=== PATIENT | male | born 1950 | race American Indian/Alaskan Native ===

== ENCOUNTER 2017-04-07 06:53 | Emergency (ER) | payer OTHER ==
[2017-04-07 07:09] VITALS: BP 166/96
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
== END 2017-04-07 10:06 | disposition home or self-care (01) ==
LOC: ED 06:53
DX: R51 Headache (principal); M54.2 Cervicalgia; Z86.73 Personal history of transient ischemic attack (TIA), and cerebral infarction without residual deficits; I10 Essential (primary) hypertension; E11.9 Type 2 diabetes mellitus without complications; Z87.891 Personal history of nicotine dependence; V49.49XA Driver injured in collision with other motor vehicles in traffic accident, initial encounter; Y92.488 Other paved roadways as the place of occurrence of the external cause; Y93.89 Activity, other specified; Y99.9 Unspecified external cause status
CPT/HCPCS: 70450; 72125

== ENCOUNTER 2017-06-14 07:55 | Outpatient (CLI) | payer MEDICARE, OTHER | END 2017-06-14 07:56 | disposition home or self-care (01) | LOC: ECHO 07:55 | PROVIDERS: ATTEND Internal Medicine Hematology & Oncology | DX: Z01.818 Encounter for other preprocedural examination (principal); I08.3 Combined rheumatic disorders of mitral, aortic and tricuspid valves; H26.9 Unspecified cataract | CPT/HCPCS: 93005; 93010; 93306 ==

== ENCOUNTER 2017-12-11 06:44 | Emergency (ER) | payer MEDICARE, OTHER ==
[2017-12-11 07:11] VITALS: BP 123/73
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
[2017-12-11 09:20] LABS: Bilirubin,Urine NEG (Negative); Blood,Urine NEG (Negative); Color,Urine Yellow (Yellow); Mucus,Urine FEW /HPF; Protein,Urine <15 mg/dL mg/dL (Negative); Urobilinogen,Urine < 2.0 mg/dL (<2.0)
== END 2017-12-11 09:24 | disposition home or self-care (01) ==
LOC: ED 06:44
DX: S39.012A Strain of muscle, fascia and tendon of lower back, initial encounter (principal); I10 Essential (primary) hypertension; E11.9 Type 2 diabetes mellitus without complications; Z86.73 Personal history of transient ischemic attack (TIA), and cerebral infarction without residual deficits; Z87.891 Personal history of nicotine dependence; Z88.2 Allergy status to sulfonamides; X58.XXXA Exposure to other specified factors, initial encounter; Y93.89 Activity, other specified; Y99.8 Other external cause status; Y92.89 Other specified places as the place of occurrence of the external cause
CPT/HCPCS: 81001; 99283

== ENCOUNTER 2018-07-14 10:50 | Outpatient (CLI) | payer MEDICARE ==
--- NOTE | 2018-07-14 11:30 | XRay Report ---
ROUTINE CHEST, TWO VIEWS: HISTORY: Cough. The trachea, heart, mediastinal contour, lung ashley and bony thorax are unremarkable. No significant change since 02/22/16. IMPRESSION: Unremarkable chest x-ray.
--- NOTE | 2018-07-14 12:31 | XRay Report ---
LUMBOSACRAL SPINE, FIVE VIEWS: HISTORY: Lower back pain. Bone mineralization is normal. There is straightening of the normal lordosis. A chronic compression deformity of L3 is identified with approximately 25% loss of height. There are moderate degenerative changes at L2-3 and L3-4. The remaining disc levels are within normal limits. There is mild diffuse facet arthropathy. The oblique images demonstrate no evidence for high-grade neural foraminal narrowing or partial defect. IMPRESSION: Chronic L3 compression deformity. Straightening of the normal lumbar lordosis. Degenerative findings as outlined above.
== END 2018-07-14 10:51 | disposition home or self-care (01) ==
LOC: XRAY 10:50
PROVIDERS: ATTEND Internal Medicine Hematology & Oncology
DX: M47.816 Spondylosis without myelopathy or radiculopathy, lumbar region (principal); M40.46 Postural lordosis, lumbar region; R05 Cough
CPT/HCPCS: 71046; 72110

== ENCOUNTER 2018-12-16 19:01 | Emergency (ER) | payer MEDICARE, OTHER ==
[2018-12-16 19:23] VITALS: BP 150/81
--- NOTE | 2018-12-16 19:23 | Event Note ---
ED Screening Note Date of service: 12/16/18 Time: 19:22 ED Screening Note: 68 y/o male with tongue irritation for a couple of weeks. This initial assessment/diagnostic orders/clinical plan/treatment(s) is/are subject to change based on patients health status, clinical progression and re-assessment by fellow clinical providers in the ED. Further treatment and workup at subsequent clinical providers discretion. Patient/guardian urged not to elope from the ED as their condition may be serious if not clinically assessed and managed. Initial orders include:
--- NOTE | 2018-12-16 19:53 | Emergency Department Report ---
ED ENT HPI - General Chief complaint: Dental/Oral Stated complaint: TONGUE IRRITATION Time Seen by Provider: 12/16/18 19:19 Source: patient Mode of arrival: Ambulatory Limitations: No Limitations - History of Present Illness Initial comments: pt is a 68 yo male who presents to the ED with c/o tongue irritation that began two weeks ago. He states that it becomes more irritated after eating. He denies any sore throat, difficulty swallowing, or any other sx. He is a former smoker and quit in 2004. pt states he has a hx of HTN and states he ate a meal high in sodium last night. - Related Data Previous Rx's Medication Instructions Recorded Last Taken Type Amoxicillin [Trimox CAP] 500 mg PO Q8H #30 capsule 06/03/13 Unknown Rx Prednisone 20 mg PO QDAY #5 tablet 06/03/13 Unknown Rx Triamcinolone 0.5% [Kenalog 0.5% 1 applic TP TID #2 tube 06/26/14 Unknown Rx CREAM] HYDROcodone/APAP 7.5-325 [[place] 1 each PO Q6HR PRN #20 tablet 02/17/16 Unknown Rx 7.5/325] Hydralazine HCl [Apresoline TAB] 50 mg PO Q12H #60 tablet 02/17/16 Unknown Rx Lisinopril/Hydrochlorothiazide 1 tab PO QDAY #30 tab 02/17/16 Unknown Rx [Zestoretic 20-12.5 mg] Cephalexin [Keflex] 500 mg PO QID #30 capsule 02/22/16 Unknown Rx HYDROcodone/APAP 7.5-325 [[place] 1 each PO Q6HR PRN #20 tablet 02/22/16 Unknown Rx 7.5/325] traMADol [Ultram 50 MG tab] 50 mg PO Q4HR PRN #12 tablet 04/07/17 Unknown Rx Ibuprofen [Motrin] 600 mg PO Q8H PRN #20 tablet 12/11/17 Unknown Rx methOCARBAMOL [Robaxin TAB] 500 mg PO Q6H PRN #15 tablet 12/11/17 Unknown Rx traMADol [Ultram] 50 mg PO Q6HR PRN #10 tablet 12/11/17 Unknown Rx Famotidine [Pepcid] 20 mg PO DAILY #20 tablet 12/16/18 Unknown Rx Nystas/Diphen/Xyl Visc/Mylanta 10 ml MM BID #1 udc 12/16/18 Unknown Rx [Magic Mouthwash] Allergies Allergy/AdvReac Type Severity Reaction Status Date / Time Sulfa (Sulfonamide Allergy Rash Verified 06/26/14 07:39 Antibiotics) ED Dental HPI - General Chief complaint: Dental/Oral Stated complaint: TONGUE IRRITATION Time Seen by Provider: 12/16/18 19:19 Source: patient Mode of arrival: Ambulatory Limitations: No Limitations - Related Data Previous Rx's Medication Instructions Recorded Last Taken Type Amoxicillin [Trimox CAP] 500 mg PO Q8H #30 capsule 06/03/13 Unknown Rx Prednisone 20 mg PO QDAY #5 tablet 06/03/13 Unknown Rx Triamcinolone 0.5% [Kenalog 0.5% 1 applic TP TID #2 tube 06/26/14 Unknown Rx CREAM] HYDROcodone/APAP 7.5-325 [[place] 1 each PO Q6HR PRN #20 tablet 02/17/16 Unknown Rx 7.5/325] Hydralazine HCl [Apresoline TAB] 50 mg PO Q12H #60 tablet 02/17/16 Unknown Rx Lisinopril/Hydrochlorothiazide 1 tab PO QDAY #30 tab 02/17/16 Unknown Rx [Zestoretic 20-12.5 mg] Cephalexin [Keflex] 500 mg PO QID #30 capsule 02/22/16 Unknown Rx HYDROcodone/APAP 7.5-325 [[place] 1 each PO Q6HR PRN #20 tablet 02/22/16 Unknown Rx 7.5/325] traMADol [Ultram 50 MG tab] 50 mg PO Q4HR PRN #12 tablet 04/07/17 Unknown Rx Ibuprofen [Motrin] 600 mg PO Q8H PRN #20 tablet 12/11/17 Unknown Rx methOCARBAMOL [Robaxin TAB] 500 mg PO Q6H PRN #15 tablet 12/11/17 Unknown Rx traMADol [Ultram] 50 mg PO Q6HR PRN #10 tablet 12/11/17 Unknown Rx Famotidine [Pepcid] 20 mg PO DAILY #20 tablet 12/16/18 Unknown Rx Nystas/Diphen/Xyl Visc/Mylanta 10 ml MM BID #1 udc 12/16/18 Unknown Rx [Magic Mouthwash] Allergies Allergy/AdvReac Type Severity Reaction Status Date / Time Sulfa (Sulfonamide Allergy Rash Verified 06/26/14 07:39 Antibiotics) ED Review of Systems ROS: Stated complaint: TONGUE IRRITATION Other details as noted in HPI Comment: All other systems reviewed and negative ED Past Medical Hx - Past Medical History Previous Medical History?: Yes Hx Hypertension: Yes Hx CVA: Yes Hx Diabetes: Yes Additional medical history: aneurysm - Surgical History Past Surgical History?: Yes Additional Surgical History: brain surgery 2000-aneurysm - Social History Smoking Status: Former Smoker Substance Use Type: None - Medications Home Medications: Home Medications Medication Instructions Recorded Confirmed Last Taken Type Amoxicillin [Trimox CAP] 500 mg PO Q8H #30 capsule 06/03/13 Unknown Rx Prednisone 20 mg PO QDAY #5 tablet 06/03/13 Unknown Rx Triamcinolone 0.5% [Kenalog 0.5% 1 applic TP TID #2 tube 06/26/14 Unknown Rx CREAM] HYDROcodone/APAP 7.5-325 [[place] 1 each PO Q6HR PRN #20 tablet 02/17/16 Unknown Rx 7.5/325] Hydralazine HCl [Apresoline TAB] 50 mg PO Q12H #60 tablet 02/17/16 Unknown Rx Lisinopril/Hydrochlorothiazide 1 tab PO QDAY #30 tab 02/17/16 Unknown Rx [Zestoretic 20-12.5 mg] Cephalexin [Keflex] 500 mg PO QID #30 capsule 02/22/16 Unknown Rx HYDROcodone/APAP 7.5-325 [[place] 1 each PO Q6HR PRN #20 tablet 02/22/16 Unknown Rx 7.5/325] traMADol [Ultram 50 MG tab] 50 mg PO Q4HR PRN #12 tablet 04/07/17 Unknown Rx Ibuprofen [Motrin] 600 mg PO Q8H PRN #20 tablet 12/11/17 Unknown Rx methOCARBAMOL [Robaxin TAB] 500 mg PO Q6H PRN #15 tablet 12/11/17 Unknown Rx traMADol [Ultram] 50 mg PO Q6HR PRN #10 tablet 12/11/17 Unknown Rx Famotidine [Pepcid] 20 mg PO DAILY #20 tablet 12/16/18 Unknown Rx Nystas/Diphen/Xyl Visc/Mylanta 10 ml MM BID #1 udc 12/16/18 Unknown Rx [Magic Mouthwash] ED Physical Exam - General Limitations: No Limitations General appearance: alert, in no apparent distress - Head Head exam: Present: atraumatic, normocephalic - ENT ENT exam: Present: normal orophraynx, mucous membranes moist, other (very small papules present on the tongue, no plaques, uvula is midline, no uvular edema, normal oropharynx) - Respiratory Respiratory exam: Present: normal lung sounds bilaterally. Absent: respiratory distress, wheezes, rales, rhonchi, stridor, chest wall tenderness, accessory muscle use, decreased breath sounds, prolonged expiratory - Cardiovascular Cardiovascular Exam: Present: regular rate, normal rhythm, normal heart sounds. Absent: systolic murmur, diastolic murmur, rubs, gallop - Neurological Exam Neurological exam: Present: alert, oriented X3 - Psychiatric Psychiatric exam: Present: normal affect, normal mood - Skin Skin exam: Present: warm, dry, intact ED Course Vital Signs 12/16/18 12/16/18 12/16/18 19:08 19:22 19:58 Temperature 98.0 F Pulse Rate 84 Respiratory 18 18 Rate Blood Pressure 149/103 Blood Pressure 150/81 [Right] O2 Sat by Pulse 93 98 Oximetry ED Medical Decision Making - Medical Decision Making pt is a 68 yo male who presents to the ED with c/o tongue irritation that began two weeks ago. He states that it becomes more irritated after eating. He denies any sore throat, difficulty swallowing, or any other sx. He is a former smoker and quit in 2004. pt states he has a hx of HTN and states he ate a meal high in sodium last night. on exam: very small papules present on the tongue, no plaques, uvula is midline, no uvular edema, normal oropharynx. examination consistent with inflammed taste buds. pt given magic mouthwash and pepcid. advised to take all medication as prescribed. discussed to drink plenty of water and avoid spicy/acidic foods. also discussed with pt to follow up with PCP in the next 2-3 days for reevaluation and discussed with pt the elevation in his blood pressure. return to the emergency room for any new or worsening symptoms. Critical care attestation.: If time is entered above; I have spent that time in minutes in the direct care of this critically ill patient, excluding procedure time. ED Disposition Clinical Impression: Transient lingual papillitis, Elevated blood pressure reading Disposition: DC-01 TO HOME OR SELFCARE Is pt being admited?: No Does the pt Need Aspirin: No Condition: Stable Additional Instructions: Please use all medication as prescribed. Please avoid spicy or acidic foods. drink plenty of water. follow up with a primary care doctor in the next 2-3 days. return to the emergency room for any new or worsening symptoms Prescriptions: Nystas/Diphen/Xyl Visc/Mylanta [Magic Mouthwash] 10 ml MM BID #1 udc Famotidine [Pepcid] 20 mg PO DAILY #20 tablet Referrals: MALLIKA LENTZ MD [Staff Physician] - 2-3 Days Time of Disposition: 19:53 Print Language: POLISH
== END 2018-12-16 20:10 | disposition home or self-care (01) ==
LOC: ED 19:01
DX: K14.0 Glossitis (principal); I10 Essential (primary) hypertension; E11.9 Type 2 diabetes mellitus without complications; Z88.2 Allergy status to sulfonamides; Z87.891 Personal history of nicotine dependence; Z79.899 Other long term (current) drug therapy; Z79.1 Long term (current) use of non-steroidal anti-inflammatories (NSAID); Z86.73 Personal history of transient ischemic attack (TIA), and cerebral infarction without residual deficits
CPT/HCPCS: 99282

== ENCOUNTER 2019-01-20 03:37 | Emergency (ER) | payer MEDICARE ==
[2019-01-20 03:47] VITALS: BP 137/86
--- NOTE | 2019-01-20 06:37 | Emergency Department Report ---
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 Patient states that the contact lens was just replaced during his outpatient ophthalmology visit one week ago. It has fallen out since but patient was able to wash it off and replace it. This morning while lens fell out and was unable to find the contact lens. He reports loss of vision in left eye without contact lens. Currently denies eye pain. He is on several eyedrops including prednisolone, ofloxacin and artificial tears. His network operations center technician is Dr Garces at [place] - Related Data Previous Rx's Medication Instructions Recorded Last Taken Type Amoxicillin [Trimox CAP] 500 mg PO Q8H #30 capsule 06/03/13 Unknown Rx Prednisone 20 mg PO QDAY #5 tablet 06/03/13 Unknown Rx Triamcinolone 0.5% [Kenalog 0.5% 1 applic TP TID #2 tube 06/26/14 Unknown Rx CREAM] HYDROcodone/APAP 7.5-325 [[place] 1 each PO Q6HR PRN #20 tablet 02/17/16 Unknown Rx 7.5/325] Hydralazine HCl [Apresoline TAB] 50 mg PO Q12H #60 tablet 02/17/16 Unknown Rx Lisinopril/Hydrochlorothiazide 1 tab PO QDAY #30 tab 02/17/16 Unknown Rx [Zestoretic 20-12.5 mg] Cephalexin [Keflex] 500 mg PO QID #30 capsule 02/22/16 Unknown Rx HYDROcodone/APAP 7.5-325 [[place] 1 each PO Q6HR PRN #20 tablet 02/22/16 Unknown Rx 7.5/325] traMADol [Ultram 50 MG tab] 50 mg PO Q4HR PRN #12 tablet 04/07/17 Unknown Rx Ibuprofen [Motrin] 600 mg PO Q8H PRN #20 tablet 12/11/17 Unknown Rx methOCARBAMOL [Robaxin TAB] 500 mg PO Q6H PRN #15 tablet 12/11/17 Unknown Rx traMADol [Ultram] 50 mg PO Q6HR PRN #10 tablet 12/11/17 Unknown Rx Famotidine [Pepcid] 20 mg PO DAILY #20 tablet 12/16/18 Unknown Rx Nystas/Diphen/Xyl Visc/Mylanta 10 ml MM BID #1 udc 12/16/18 Unknown Rx [Magic Mouthwash] Allergies Allergy/AdvReac Type Severity Reaction Status Date / Time Sulfa (Sulfonamide Allergy Rash Verified 06/26/14 07:39 Antibiotics) ED Review of Systems ROS: Stated complaint: EYE IRRITATION Other details as noted in HPI Comment: All other systems reviewed and negative ED Past Medical Hx - Past Medical History Previous Medical History?: Yes Hx Hypertension: Yes Hx CVA: Yes Hx Diabetes: Yes Hx Deep Vein Thrombosis: Yes Additional medical history: aneurysm - Surgical History Past Surgical History?: Yes Additional Surgical History: brain surgery 2000-aneurysm. left corneal transplant. - Social History Smoking Status: Former Smoker Substance Use Type: None - Medications Home Medications: Home Medications Medication Instructions Recorded Confirmed Last Taken Type Amoxicillin [Trimox CAP] 500 mg PO Q8H #30 capsule 06/03/13 Unknown Rx Prednisone 20 mg PO QDAY #5 tablet 06/03/13 Unknown Rx Triamcinolone 0.5% [Kenalog 0.5% 1 applic TP TID #2 tube 06/26/14 Unknown Rx CREAM] HYDROcodone/APAP 7.5-325 [[place] 1 each PO Q6HR PRN #20 tablet 02/17/16 Unknown Rx 7.5/325] Hydralazine HCl [Apresoline TAB] 50 mg PO Q12H #60 tablet 02/17/16 Unknown Rx Lisinopril/Hydrochlorothiazide 1 tab PO QDAY #30 tab 02/17/16 Unknown Rx [Zestoretic 20-12.5 mg] Cephalexin [Keflex] 500 mg PO QID #30 capsule 02/22/16 Unknown Rx HYDROcodone/APAP 7.5-325 [[place] 1 each PO Q6HR PRN #20 tablet 02/22/16 Unknown Rx 7.5/325] traMADol [Ultram 50 MG tab] 50 mg PO Q4HR PRN #12 tablet 04/07/17 Unknown Rx Ibuprofen [Motrin] 600 mg PO Q8H PRN #20 tablet 12/11/17 Unknown Rx methOCARBAMOL [Robaxin TAB] 500 mg PO Q6H PRN #15 tablet 12/11/17 Unknown Rx traMADol [Ultram] 50 mg PO Q6HR PRN #10 tablet 12/11/17 Unknown Rx Famotidine [Pepcid] 20 mg PO DAILY #20 tablet 12/16/18 Unknown Rx Nystas/Diphen/Xyl Visc/Mylanta 10 ml MM BID #1 udc 12/16/18 Unknown Rx [Magic Mouthwash] ED Physical Exam - General Limitations: No Limitations - Other Other exam information: General: No limitations, patient is alert in no acute distress Head exam: Atraumatic, normocephalic Eyes exam: Left eye with significant white opacification lower part of cornea obscuring the pupil. Extraocular movements intact. Visual acuity left eye: Patient only sees white. Right eye vision 20/15 ENT: Moist mucous membrane, normal oropharynx Neck exam: Normal inspection, full range of motion Respiratory exam: Clear to auscultation bilateral, no wheezes, rales, crackles Cardiovascular: Normal rate and rhythm, normal heart sounds Abdomen: Soft, nondistended, and nontender, with normal bowel sounds, no rebound, or guarding Extremity: Full range of motion normal inspection no deformity Back: Normal Inspection, full range of motion, no tenderness Neurologic: Alert, oriented x3, cranial nerves intact, no motor or sensory deficit Psychiatric: normal affect, normal mood Skin: Warm, dry, intact ED Course Vital Signs 01/20/19 03:38 Temperature 98.3 F Pulse Rate 69 Respiratory 18 Rate Blood Pressure 137/86 O2 Sat by Pulse 97 Oximetry - Consultations Consultation #1: 01/20/19 06:57 case d/w DR Bergman. director call MD for Dr King. He states pt may come back to the office today for contact lens replacement ED Medical Decision Making - Medical Decision Making The patient be discharged to go to his network operations center technician's office for contact lens replacement as discussed with Dr. Bergman. - Differential Diagnosis contact lens removal, cornea abrasion Critical Care Time: No Critical care attestation.: If time is entered above; I have spent that time in minutes in the direct care of this critically ill patient, excluding procedure time. ED Disposition Clinical Impression: H/O cornea transplant, Encounter for fitting or adjustment of spectacles or contact lenses Disposition: DC-01 TO HOME OR SELFCARE Is pt being admited?: No Does the pt Need Aspirin: No Condition: Stable Additional Instructions: Your case was discussed with your network operations center technician group. Please go to the office today for replacement of your contact lens. Referrals: MD Christine [Other] - 01/20/19 ([facility]) Time of Disposition: 07:01
== END 2019-01-20 07:05 | disposition home or self-care (01) ==
LOC: ED 03:37
DX: Z46.0 Encounter for fitting and adjustment of spectacles and contact lenses (principal); E11.9 Type 2 diabetes mellitus without complications; I10 Essential (primary) hypertension; Z88.2 Allergy status to sulfonamides; Z86.718 Personal history of other venous thrombosis and embolism; Z86.73 Personal history of transient ischemic attack (TIA), and cerebral infarction without residual deficits; Z79.899 Other long term (current) drug therapy; Z79.1 Long term (current) use of non-steroidal anti-inflammatories (NSAID); Z87.891 Personal history of nicotine dependence
CPT/HCPCS: 99282

== ENCOUNTER 2019-09-01 20:40 | Emergency (ER) | payer MEDICARE ==
--- NOTE | 2019-09-01 20:56 | Emergency Department Report ---
Blank Doc - Documentation Documentation: 69-year-old male that presents with abdominal pain with nausea. This initial assessment/diagnostic orders/clinical plan/treatment(s) is/are subject to change based on patient's health status, clinical progression and re- assessment by fellow clinical providers in the ED. Further treatment and workup at subsequent clinical providers discretion. Patient/guardians urged not to elope from the ED as their condition may be serious if not clinically assessed and managed. Initial orders include: 1- Patient sent to [facility] for further evaluation and treatment 2- labs 3- UA
[2019-09-01 23:08] LABS: Basophils # (Auto) 0.1 K/mm3 (0.0-0.1); Basophils % (Auto) 1.3 % (0.0-1.8); Eosinophils # (Auto) 0.3 K/mm3 (0.0-0.4); Eosinophils % (Auto) 4.4 % (0.0-4.3); Hematocrit 50.2 % (35.5-45.6); Hemoglobin 17.1 gm/dl (11.8-15.2); Lymphocytes # (Auto) 2.6 K/mm3 (1.2-5.4); Lymphocytes % (Auto) 39.8 % (13.4-35.0); Mean Corpuscular HGB Conc 34 % (32-34); Mean Corpuscular Volume 84 fl (84-94); Monocytes # (Auto) 0.9 K/mm3 (0.0-0.8); Monocytes % (Auto) 13.7 % (0.0-7.3); Platelet Count 216 K/mm3 (140-440); Red Blood Count 6.02 M/mm3 (3.65-5.03); Red Cell Distribution Width 15.8 % (13.2-15.2)
[2019-09-01 23:34] LABS: Alanine Aminotransferase 40 units/L (7-56); BUN/Creatinine Ratio 18; Blood Urea Nitrogen 11 mg/dL (9-20); Hemolysis Index 7
[2019-09-02] MEDS ORDERED: FAMOTIDINE 20 MG TAB PO ONE (02:04)
[2019-09-02] MEDS ORDERED: DICYCLOMINE 20 MG TAB PO ONE (02:04)
[2019-09-02] MEDS ORDERED: ONDANSETRON 4 MG ODT TAB PO ONE (02:04)
[2019-09-02 02:53] LABS: Bilirubin,Urine NEG (Negative); Blood,Urine NEG (Negative); Calcium Oxalate Crystals,Urine 2+; Color,Urine Yellow (Yellow); Mucus,Urine FEW /HPF; Protein,Urine <15 mg/dL mg/dL (Negative); Urobilinogen,Urine < 2.0 mg/dL (<2.0); WBC,Urine < 1.0 /HPF (0.0-6.0)
[2019-09-02 03:00] VITALS: BP 167/91
--- NOTE | 2019-09-02 05:45 | Emergency Department Report ---
ED Abdominal Pain HPI - General Chief Complaint: Abdominal Pain Stated Complaint: STOMACH PAIN/BP Time Seen by Provider: 09/01/19 20:54 Source: patient Mode of arrival: Ambulatory Limitations: No Limitations - History of Present Illness Initial Comments: Patient is a 69-year-old -[place] male with a history of hypertension, previous stroke and brain aneurysm who presents to the ED with acute onset persistent intermittent diffuse abdominal pain with nausea for 2 hours after eating a sandwich 8 hours before the onset of the symptoms. Patient describes the pain as crampy, mild and and that it is intermittent. Patient denies chest pain, shortness of breath, dizziness, fever, chills, cough, hemoptysis, hematemesis, diarrhea, vomiting, dysuria, testicular pain, syncope or change in vision. Patient states that while waiting in the ED the abdominal pain resolved and that he has not had any nausea or vomiting while in the ED. MD Complaint: abdominal pain, other (nausea) -: Sudden, hour(s) (2) Location: diffuse Radiation: none Migration to: no migration Severity: mild Severity scale (0 -10): 0 Quality: aching, dull Consistency: intermittent Improves With: nothing Worsens With: nothing Context: foreign travel Associated Symptoms: denies other symptoms, nausea, anorexia. denies: vomiting, diarrhea, fever, chills, constipation, dysuria, hematemesis, hematochezia, melena, hematuria, syncope - Related Data Previous Rx's Medication Instructions Recorded Last Taken Type Amoxicillin [Trimox CAP] 500 mg PO Q8H #30 capsule 06/03/13 Unknown Rx Prednisone 20 mg PO QDAY #5 tablet 06/03/13 Unknown Rx Triamcinolone 0.5% [Kenalog 0.5% 1 applic TP TID #2 tube 06/26/14 Unknown Rx CREAM] HYDROcodone/APAP 7.5-325 [[place] 1 each PO Q6HR PRN #20 tablet 02/17/16 Unknown Rx 7.5/325] Hydralazine HCl [Apresoline TAB] 50 mg PO Q12H #60 tablet 02/17/16 Unknown Rx Lisinopril/Hydrochlorothiazide 1 tab PO QDAY #30 tab 02/17/16 Unknown Rx [Zestoretic 20-12.5 mg] Cephalexin [Keflex] 500 mg PO QID #30 capsule 02/22/16 Unknown Rx HYDROcodone/APAP 7.5-325 [[place] 1 each PO Q6HR PRN #20 tablet 02/22/16 Unknown Rx 7.5/325] traMADoL [Ultram 50 MG tab] 50 mg PO Q4HR PRN #12 tablet 04/07/17 Unknown Rx Ibuprofen [Motrin] 600 mg PO Q8H PRN #20 tablet 12/11/17 Unknown Rx methOCARBAMOL [Robaxin TAB] 500 mg PO Q6H PRN #15 tablet 12/11/17 Unknown Rx traMADoL [Ultram] 50 mg PO Q6HR PRN #10 tablet 12/11/17 Unknown Rx Famotidine [Pepcid] 20 mg PO DAILY #20 tablet 12/16/18 Unknown Rx Nystas/Diphen/Xyl Visc/Mylanta 10 ml MM BID #1 udc 12/16/18 Unknown Rx [Magic Mouthwash] Dicyclomine [Bentyl] 20 mg PO Q6H PRN #24 tablet 09/02/19 Unknown Rx Famotidine [Pepcid] 20 mg PO Q12H #20 tablet 09/02/19 Unknown Rx Ondansetron [Zofran Odt] 4 mg PO Q6HR PRN #20 tab.rapdis 09/02/19 Unknown Rx Allergies Allergy/AdvReac Type Severity Reaction Status Date / Time Sulfa (Sulfonamide Allergy Rash Verified 06/26/14 07:39 Antibiotics) ED Review of Systems ROS: Stated complaint: STOMACH PAIN/BP Other details as noted in HPI Constitutional: denies: chills, fever Eyes: denies: eye pain, eye discharge, vision change ENT: denies: ear pain, throat pain Respiratory: denies: cough, shortness of breath, wheezing Cardiovascular: denies: chest pain, palpitations Endocrine: no symptoms reported Gastrointestinal: abdominal pain, nausea. denies: diarrhea Genitourinary: denies: urgency, dysuria Musculoskeletal: denies: back pain, joint swelling, arthralgia Skin: denies: rash, lesions Neurological: denies: headache, weakness, paresthesias Psychiatric: denies: anxiety, depression Hematological/Lymphatic: denies: easy bleeding, easy bruising ED Past Medical Hx - Past Medical History Previous Medical History?: Yes Hx Hypertension: Yes Hx CVA: Yes Hx Diabetes: Yes Hx Deep Vein Thrombosis: Yes Additional medical history: aneurysm - Surgical History Past Surgical History?: Yes Additional Surgical History: brain surgery 2001-aneurysm. left corneal transplant. - Social History Smoking Status: Former Smoker Substance Use Type: None - Medications Home Medications: Home Medications Medication Instructions Recorded Confirmed Last Taken Type Amoxicillin [Trimox CAP] 500 mg PO Q8H #30 capsule 06/03/13 Unknown Rx Prednisone 20 mg PO QDAY #5 tablet 06/03/13 Unknown Rx Triamcinolone 0.5% [Kenalog 0.5% 1 applic TP TID #2 tube 06/26/14 Unknown Rx CREAM] HYDROcodone/APAP 7.5-325 [[place] 1 each PO Q6HR PRN #20 tablet 02/17/16 Unknown Rx 7.5/325] Hydralazine HCl [Apresoline TAB] 50 mg PO Q12H #60 tablet 02/17/16 Unknown Rx Lisinopril/Hydrochlorothiazide 1 tab PO QDAY #30 tab 02/17/16 Unknown Rx [Zestoretic 20-12.5 mg] Cephalexin [Keflex] 500 mg PO QID #30 capsule 02/22/16 Unknown Rx HYDROcodone/APAP 7.5-325 [[place] 1 each PO Q6HR PRN #20 tablet 02/22/16 Unknown Rx 7.5/325] traMADoL [Ultram 50 MG tab] 50 mg PO Q4HR PRN #12 tablet 04/07/17 Unknown Rx Ibuprofen [Motrin] 600 mg PO Q8H PRN #20 tablet 12/11/17 Unknown Rx methOCARBAMOL [Robaxin TAB] 500 mg PO Q6H PRN #15 tablet 12/11/17 Unknown Rx traMADoL [Ultram] 50 mg PO Q6HR PRN #10 tablet 12/11/17 Unknown Rx Famotidine [Pepcid] 20 mg PO DAILY #20 tablet 12/16/18 Unknown Rx Nystas/Diphen/Xyl Visc/Mylanta 10 ml MM BID #1 udc 12/16/18 Unknown Rx [Magic Mouthwash] Dicyclomine [Bentyl] 20 mg PO Q6H PRN #24 tablet 09/02/19 Unknown Rx Famotidine [Pepcid] 20 mg PO Q12H #20 tablet 09/02/19 Unknown Rx Ondansetron [Zofran Odt] 4 mg PO Q6HR PRN #20 tab.rapdis 09/02/19 Unknown Rx ED Physical Exam - General Limitations: No Limitations General appearance: alert, in no apparent distress - Head Head exam: Present: atraumatic, normocephalic, normal inspection - Eye Eye exam: Present: normal appearance, PERRL, EOMI Pupils: Present: other (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 Absent: respiratory distress, wheezes, rales, rhonchi, chest wall tenderness, accessory muscle use, decreased breath sounds - Cardiovascular Cardiovascular Exam: Present: normal rhythm, tachycardia, normal heart sounds. Absent: systolic murmur, diastolic murmur, rubs, gallop - GI/Abdominal GI/Abdominal exam: Present: soft, normal bowel sounds. Absent: distended, tenderness, guarding, rebound, hyperactive bowel sounds - Extremities Exam Extremities exam: Present: normal inspection, full ROM, normal capillary refill - Back Exam Back exam: Present: normal inspection, full ROM. Absent: tenderness, CVA tenderness (R), CVA tenderness (L), muscle spasm, paraspinal tenderness - Neurological Exam Neurological exam: Present: alert, oriented X3, CN II-XII intact, normal gait, reflexes normal - Psychiatric Psychiatric exam: Present: normal affect, normal mood - Skin Skin exam: Present: warm, dry, intact, normal color. Absent: rash ED Course Vital Signs 09/01/19 09/02/19 09/02/19 20:48 02:55 02:58 Temperature 97.9 F 98.0 F Pulse Rate 65 53 L Respiratory 18 16 16 Rate Blood Pressure 169/91 Blood Pressure 167/91 [Right] O2 Sat by Pulse 93 97 Oximetry ED Medical Decision Making - Lab Data Result diagrams: 09/01/19 22:39 09/01/19 22:39 - Medical Decision Making This is a 69-year-old male who presented to the ED with vague abdominal pain with nausea for 2 hours which he attributes to a sandwich that he bought in a restaurant and ate 8 hours prior to the onset of symptoms. In the ED, patient is alert and oriented x3 and is not in distress. Lab test results were reviewed and are all nonactionable. Patient denies any abdominal pain during the physical exam stating that the pain has resolved while he was in the waiting room. I offered abdomen pelvis CT scan with contrast for the patient but after waiting for the CT scan for a long time the patient declined the CT scan and as be discharged home. Based on the fact the patient having been in this ED for over 8 hours with no pain and with normal lab test results patient was discharged home on pain medications and advised to return to the ED immediately if his symptoms return to that abdomen pelvis CT scan with contrast may be performed. Patient was otherwise advised to follow-up with his primary care physician in 2 to 3 days for reevaluation. Patient symptoms are likely due to a viral gastroenteritis after consumption of stale food from a restaurant. - Differential Diagnosis Gastroenteritis; GERD; Colitis; constipation; UTI; Kidney stones; Neoplasm Critical care attestation.: If time is entered above; I have spent that time in minutes in the direct care of this critically ill patient, excluding procedure time. ED Disposition Clinical Impression: Viral gastroenteritis Abdominal pain Qualifiers: Abdominal location: generalized Qualified Code(s): R10.84 - Generalized abdominal pain Disposition: DC-01 TO HOME OR SELFCARE Is pt being admited?: No Does the pt Need Aspirin: No Condition: Stable Instructions: Acute Abdominal Pain (ED) Additional Instructions: Take medication with food, drink plenty of fluids and follow-up with your primary care physician in 3 to 5 days for reevaluation. Return to the ED immediately if symptoms get worse. Prescriptions: Dicyclomine [Bentyl] 20 mg PO Q6H PRN #24 tablet PRN Reason: Pain , Severe (7-10) Famotidine [Pepcid] 20 mg PO Q12H #20 tablet Ondansetron [Zofran Odt] 4 mg PO Q6HR PRN #20 tab.rapdis PRN Reason: Nausea Referrals: [facility] [Outside] - 3-5 Days Time of Disposition: 05:47 Print Language: GIBRALTAR[place]
== END 2019-09-02 06:00 | disposition home or self-care (01) ==
LOC: ED 20:40
DX: A08.4 Viral intestinal infection, unspecified (principal); I10 Essential (primary) hypertension; E11.9 Type 2 diabetes mellitus without complications; I72.9 Aneurysm of unspecified site; Z86.73 Personal history of transient ischemic attack (TIA), and cerebral infarction without residual deficits; Z86.718 Personal history of other venous thrombosis and embolism; Z98.890 Other specified postprocedural states; Z87.891 Personal history of nicotine dependence; Z79.899 Other long term (current) drug therapy; Z79.2 Long term (current) use of antibiotics; Z88.2 Allergy status to sulfonamides
CPT/HCPCS: 36415; 80053; 81001; 83690; 85025; Q0162